=== PATIENT | female | born 1995 | race Caucasian/White ===

== ENCOUNTER 2017-01-16 15:38 | Emergency (ER) | payer SELFPAY ==
[2017-01-16] MEDS ORDERED: ONDANSETRON 4 MG TAB.RAPDIS PO ONE (16:31)
[2017-01-16] MEDS: NORMAL SALINE 1000 ML 1,000 ML IV PRN ×3 (16:47→17:44)
[2017-01-16 16:58] LABS: ABSOLUTE EOSINOPHILS # (AUTO) 0.1 10^3/uL (0.0-0.6); ABSOLUTE LYMPHOCYTES (AUTO) 1.6 10^3/uL (0.5-4.7); ABSOLUTE MONOCYTES (AUTO) 1.5 10^3/uL (0.1-1.4); BASOPHILS % (AUTO) 0.3 % (0-2); EOSINOPHILS % (AUTO) 0.6 % (0-6); HEMATOCRIT 44.9 % (36.0-47.0); HEMOGLOBIN 15.2 g/dL (12.0-15.5); HGB HCT DIFFERENCE 0.7; LYMPHOCYTES % (AUTO) 12.1 % (13-45); MEAN CORPUSCULAR HEMOGLOBIN 28.5 pg (27.0-33.4); MEAN CORPUSCULAR HGB CONC 33.9 g/dL (32.0-36.0); MEAN CORPUSCULAR VOLUME 84 fl (80-97); MONOCYTES % (AUTO) 11.3 % (3-13); RED BLOOD COUNT 5.34 10^6/uL (3.72-5.28); RED CELL DISTRIBUTION WIDTH 12.9 % (11.5-14.0); SEGMENTED NEUTROPHILS % (AUTO) 75.7 % (42-78); WHITE BLOOD COUNT 13.2 10^3/uL (4.0-10.5)
[2017-01-16 17:11] LABS: APPEARANCE,URINE CLOUDY; BILIRUBIN,URINE MODERATE (NEGATIVE); GLUCOSE, URINE NEGATIVE (NEGATIVE); KETONES,URINE 80 mg/dL (NEGATIVE); LEUKOCYTE ESTERASE,URINE SMALL (NEGATIVE); NITRITE,URINE NEGATIVE (NEGATIVE); PROTEIN,URINE 100 mg/dL (NEGATIVE); URINE SPECIFIC GRAVITY 1.024
[2017-01-16 17:17] LABS: ALANINE AMINOTRANSFERASE 163 U/L (9-52); ALBUMIN 4.8 g/dL (3.5-5.0); ALKALINE PHOSPHATASE 126 U/L (38-126); ASPARTATE AMINO TRANSFERASE 82 U/L (14-36); BILIRUBIN,DIRECT 1.1 mg/dL (0.0-0.4); BILIRUBIN,TOTAL 1.5 mg/dL (0.2-1.3); BLOOD UREA NITROGEN 15 mg/dL (7-20); CALCIUM 10.2 mg/dL (8.4-10.2); CREATININE RESULT 1.06 mg/dL (0.52-1.25); GLUCOSE 98 mg/dL (75-110); TOTAL PROTEIN 8.6 g/dL (6.3-8.2)
[2017-01-16] MEDS ORDERED: CEFTRIAXONE 1 GM/D5W RTU 50 ML IV ONE (17:19)
--- NOTE | 2017-01-16 17:53 | ER Document Report ---
ED GI/ - General Mode of Arrival: Ambulatory Information source: Patient TRAVEL OUTSIDE OF THE [place] IN LAST 30 DAYS: No - HPI Onset: Other - Refer to HPI notes Associated symptoms: Nausea, Vomiting <SOHEILA CURRY - Last Filed: 01/16/17 20:20> <KENDELL DIAMOND - Last Filed: 01/16/17 23:04> - General Chief Complaint: Flank Pain Stated Complaint: FLANK PAIN Time Seen by Provider: 01/16/17 16:30 Notes: Patient is a 21 year old female presenting to the emergency department for side pain, vomiting, nausea, difficulty sleeping, and some abdominal discomfort. Patient is unsure if she is but states her last menstrual period was somewhat abnormal. Patient states her pain has increased over the last few days. Patient also has a lack of appetite and has some vaginal discharge which is normal for her. Patient denies any vaginal bleeding. Patient thought that she had a virus but it is lasting longer than she thought. Patient has no known allergies. (SOHEILA CURRY) - Related Data Allergies/Adverse Reactions: No Known Allergies Allergy (Verified 01/16/17 19:27) Past Medical History - General Information source: Patient - Social History Smoking Status: Never Smoker Cigarette use (# per day): No Chew tobacco use (# tins/day): No Smoking Education Provided: No Frequency of alcohol use: None Drug Abuse: None Family History: None Patient has suicidal ideation: No Patient has homicidal ideation: No - Medical History Medical History: Negative Surgical Hx: Negative <SOHEILA CURRY - Last Filed: 01/16/17 20:20> Review of Systems - Review of Systems Constitutional: No symptoms reported EENT: No symptoms reported Cardiovascular: No symptoms reported Respiratory: No symptoms reported Gastrointestinal: See HPI, Abdominal pain, Nausea, Vomiting, Poor appetite Genitourinary: No symptoms reported Female Genitourinary: See HPI, Vaginal discharge Musculoskeletal: No symptoms reported Skin: No symptoms reported Hematologic/Lymphatic: No symptoms reported Neurological/Psychological: No symptoms reported -: Yes All other systems reviewed and negative <SOHEILA CURRY - Last Filed: 01/16/17 20:20> Physical Exam - Vital signs Interpretation: Tachycardic <SOHEILA CURRY - Last Filed: 01/16/17 20:20> <KENDELL DIAMOND - Last Filed: 01/16/17 23:04> - Vital signs Vitals: Temp Pulse Resp BP Pulse Ox 98.5 F 137 H 20 129/99 H 96 01/16/17 15:42 01/16/17 15:42 01/16/17 15:42 01/16/17 15:42 01/16/17 15:42 - Notes Notes: GENERAL: Alert, interacts well. Mild distress. HEAD: Normocephalic, atraumatic. EYES: Appear normal. Pupils equal, round, and reactive to light. ENT: Dry mucus membranes, tongue midline. NECK: Full range of motion. Supple. Trachea midline. LUNGS: Clear to auscultation bilaterally, no wheezes, rales, or rhonchi. No respiratory distress. HEART: Regular rate and rhythm. No murmurs, gallops, or rubs. ABDOMEN: Soft, non-tender. Non-distended. Normal bowel sounds. BACK: Left CVA tenderness to palpation. EXTREMITIES: Moves all 4 extremities spontaneously. Normal strength. No edema. NEUROLOGICAL: Alert and oriented x3. Normal speech. No focal neurological deficits. GSC 15. PSYCH: Normal affect, normal mood. SKIN: Warm, dry, normal turgor. No rashes or lesions noted. (SOHEILA CURRY) Course - Laboratory Result Diagrams: 01/16/17 16:45 01/16/17 16:45 <SOHEILA CURRY - Last Filed: 01/16/17 20:20> - Laboratory Result Diagrams: 01/16/17 16:45 01/16/17 16:45 <KENDELL DIAMOND - Last Filed: 01/16/17 23:04> - Re-evaluation Re-evalutation: 01/16/17 19:00 Patient is a 21-year-old female who comes in with flank pain, nausea and vomiting. Patient with UTI, probable pyelonephritis. Patient is also dehydrated. Feeling better after fluids and nausea medicine. Patient is which she was not aware of. Ultrasound ordered. 01/16/17 21:00 No acute findings on ultrasound. Patient is feeling a little nauseated after eating crackers. Will be given Reglan. Patient is feeling much better at this time. Will be given Tylenol for some mild pain. 01/16/17 23:01 Patient is taking p.o. without any difficulty. Comfortable going home. She is to follow-up with [facility]. She has been given a copy of her ultrasound and blood work. Of note, patient also appears to have hyperthyroidism which is not known to her. (KENDELL DIAMOND) - Vital Signs Vital signs: Temp Pulse Resp BP Pulse Ox 98.5 F 95 18 125/70 99 01/16/17 20:31 01/16/17 20:31 01/16/17 20:31 01/16/17 20:31 01/16/17 20:31 - Laboratory Laboratory results interpreted by me: 01/16/17 01/16/17 01/16/17 16:45 16:45 16:45 WBC 13.2 H RBC 5.34 H Lymphocytes % 12.1 L Absolute Neutrophils 10.0 H Absolute Monocytes 1.5 H Sodium 135.6 L Potassium 3.4 L Chloride 92 L Carbon Dioxide 21 L Anion Gap 23 H Total Bilirubin 1.5 H Direct Bilirubin 1.1 H AST 82 H ALT 163 H Total Protein 8.6 H TSH < 0.02 L Beta HCG, Quant 751257.00 H Urine Protein Urine Ketones Urine Blood Urine Bilirubin Urine Urobilinogen Ur Leukocyte Esterase 01/16/17 16:45 WBC RBC Lymphocytes % Absolute Neutrophils Absolute Monocytes Sodium Potassium Chloride Carbon Dioxide Anion Gap Total Bilirubin Direct Bilirubin AST ALT Total Protein TSH Beta HCG, Quant Urine Protein 100 H Urine Ketones 80 H Urine Blood SMALL H Urine Bilirubin MODERATE H Urine Urobilinogen 4.0 H Ur Leukocyte Esterase SMALL H Discharge <SOHEILA CURRY - Last Filed: 01/16/17 20:20> <KENDELL DIAMOND - Last Filed: 01/16/17 23:04> - Discharge Clinical Impression: Pyelonephritis Qualifiers: Weeks of gestation: 10 weeks Qualified Code(s): Z3A.10 - 10 weeks gestation of Condition: Stable Disposition: HOME, SELF-CARE Instructions: Pyelonephritis ([facility]), Rocephin ([facility]), Acetaminophen Additional Instructions: Please follow-up with your doctor this week. Please make sure you are taking antibiotics as prescribed. Return immediately if you have any worsening symptoms or further concerns. Prescriptions: Cephalexin Monohydrate [Keflex 500 mg Capsule] 500 mg PO QID #40 capsule Metoclopramide HCl [Reglan 10 mg Tablet] 1 tab PO TIDP PRN #25 tablet PRN Reason: Forms: Return to Work [facility]: [facility] [Provider Group] - 01/19/17 Scribe Attestation: 01/16/17 23:01 I personally performed the services described in the documentation, reviewed and edited the documentation which was dictated to the scribe in my presence, and it accurately records my words and actions. (KENDELL DIAMOND) Scribe Documentation - Scribe Written by Gaile:: Domo Mendoza, 01/16/2017 19:52 acting as scribe for :: Low <SOHEILA CURRY - Last Filed: 01/16/17 20:20>
[2017-01-16 18:05] LABS: CARBON DIOXIDE 21 mmol/L (22-30); CHLORIDE 92 mmol/L (98-107); POTASSIUM 3.4 mmol/L (3.6-5.0); SODIUM 135.6 mmol/L (137-145)
[2017-01-16] MEDS ORDERED: NORMAL SALINE 1000 ML 1,000 ML IV ONE (18:09)
[2017-01-16 18:24] LABS: ANION GAP 23 (5-19)
--- NOTE | 2017-01-16 20:59 | RADIOLOGY REPORT (SQ) ---
EXAM DESCRIPTION: U/S ABDOMEN LIMITED W/O DOP COMPLETED DATE/TIME: 01/16/2017 8:40 pm REASON FOR STUDY: left flank pain, COMPARISON: None. TECHNIQUE: Dynamic and static grayscale images acquired of the abdomen and recorded on PACS. Additio nal selected color Doppler and spectral images recorded. LIMITATIONS: None. FINDINGS: PANCREAS: No masses. Visualized pancreatic duct normal caliber. LIVER: No masses. Echotexture normal. LIVER VASCULATURE: Normal directional flow of the main portal vein and hepatic veins. GALLBLADDER: Moderate amount of gallbladder sludge. No shadowing stones. Normal wall thickness. No p ericholecystic fluid. ULTRASOUND-DETECTED FALCON'S SIGN: Negative. INTRAHEPATIC DUCTS AND COMMON DUCT: CBD and intrahepatic ducts normal caliber. No filling defects. INFERIOR VENA CAVA: Normal flow. AORTA: No aneurysm. RIGHT KIDNEY: Normal size. Normal echogenicity. No solid or suspicious masses. No hydronephrosis. No calcifications. PERITONEAL AND RIGHT PLEURAL SPACE: No ascites or effusions. OTHER: No other significant findings. IMPRESSION: Moderate amount of gallbladder sludge. No shadowing stones. No pericholecystic fluid. TECHNICAL DOCUMENTATION: JOB ID: [id number] [employer]- All Rights Reserved
--- NOTE | 2017-01-16 21:01 | RADIOLOGY REPORT (SQ) ---
EXAM DESCRIPTION: U/S OB TRANSVAGINAL W/O DOP COMPLETED DATE/TIME: 01/16/2017 8:40 pm REASON FOR STUDY: , evaluate for IUP COMPARISON: None. TECHNIQUE: Transvaginal static and realtime grayscale images acquired of the pelvis. Additional olga cted spectral and color Doppler images recorded. All images stored on PACs. bHC, 680 LIMITATIONS: None. FINDINGS: FETUS: Living intrauterine . CRL 4.0 cm. EGA: 10 weeks 6 days OSEAS: 08/08/2017 FHR: 160 beats per minute. SUBCHORIONIC BLEED: No SIZE OF BLEED: Not applicable. UTERUS: No masses. No anomalies. CERVICAL LENGTH: 3.2 cm Closed. RIGHT ADNEXA: Ovary not identified. No adnexal free fluid. No adnexal masses. LEFT ADNEXA: Normal ovary with normal vascular flow. No adnexal free fluid. No adnexal masses. FREE FLUID: None. OTHER: No other significant finding. IMPRESSION: LIVING INTRAUTERINE . EGA 10 weeks 6 days Trimester of : First - 0 to 13 weeks. TECHNICAL DOCUMENTATION: JOB ID: [id number] [employer]- All Rights Reserved
[2017-01-16] MEDS ORDERED: METOCLOPRAMIDE HCL INJ/PF 10 MG/2 ML SDV IV ONE (21:37)
[2017-01-16] MEDS ORDERED: ACETAMINOPHEN 325 MG TABLET PO ONE (22:50)
[2017-01-16 22:52] VITALS: BP 117/65
== END 2017-01-16 23:05 | disposition home or self-care (01) ==
LOC: ER 15:38
DX: O23.01 Infections of kidney in pregnancy, first trimester (principal); R10.9 Unspecified abdominal pain; O21.9 Vomiting of pregnancy, unspecified; Z3A.10 10 weeks gestation of pregnancy
CPT/HCPCS: 99284; 96375; 96365; 36415; 87040; 87086; 84702; 84443; 85025; 87077; 80053; 81001; 87186; 76817; 76705; S0119; J2765; J7030; J0696

== ENCOUNTER 2017-02-01 14:44 | Emergency (ER) | payer SELFPAY ==
[2017-02-01] MEDS ORDERED: DEXTROSE 5%-NORMAL SALINE 1,000 ML IV ONE ×2 (15:50→15:51)
[2017-02-01] MEDS ORDERED: METOCLOPRAMIDE HCL INJ/PF 10 MG/2 ML SDV IV ONE ×2 (15:51→17:57)
[2017-02-01] MEDS ORDERED: DIPHENHYDRAMINE HCL 50 MG/ML VIAL IV ONE (15:51)
--- NOTE | 2017-02-01 15:52 | ER Document Report ---
ED Medical Screen (RME) - General Chief Complaint: Nausea/Vomiting Stated Complaint: NAUSEA Time Seen by Provider: 02/01/17 15:50 Mode of Arrival: Ambulatory Information source: Patient Notes: -year-old female who is 13 weeks presents to the emergency room with nausea, vomiting not tolerating fluids TRAVEL OUTSIDE OF THE [place] IN LAST 30 DAYS: No - Related Data Allergies/Adverse Reactions: No Known Allergies Allergy (Verified 01/16/17 19:27) Past Medical History Renal/ Medical History: Denies: Hx Peritoneal Dialysis Physical Exam - Vital signs Vitals: Temp Pulse Resp BP Pulse Ox 97.4 F 115 H 18 128/85 H 96 02/01/17 14:48 02/01/17 14:48 02/01/17 14:48 02/01/17 14:48 02/01/17 14:48 Course - Vital Signs Vital signs: Temp Pulse Resp BP Pulse Ox 97.4 F 115 H 18 128/85 H 96 02/01/17 14:48 02/01/17 14:48 02/01/17 14:48 02/01/17 14:48 02/01/17 14:48
[2017-02-01 16:15] LABS: ABSOLUTE LYMPHOCYTES (AUTO) 1.2 10^3/uL (0.5-4.7); ABSOLUTE MONOCYTES (AUTO) 1.1 10^3/uL (0.1-1.4); ABSOLUTE NEUT (AUTO) 10.4 10^3/uL (1.7-8.2); BASOPHILS % (AUTO) 0.4 % (0-2); EOSINOPHILS % (AUTO) 0.3 % (0-6); HEMATOCRIT 40.8 % (36.0-47.0); HEMOGLOBIN 14.3 g/dL (12.0-15.5); HGB HCT DIFFERENCE 2.1; LYMPHOCYTES % (AUTO) 9.3 % (13-45); MEAN CORPUSCULAR HEMOGLOBIN 29.5 pg (27.0-33.4); MEAN CORPUSCULAR VOLUME 84 fl (80-97); MONOCYTES % (AUTO) 8.9 % (3-13); RED BLOOD COUNT 4.84 10^6/uL (3.72-5.28); RED CELL DISTRIBUTION WIDTH 13.3 % (11.5-14.0); SEGMENTED NEUTROPHILS % (AUTO) 81.1 % (42-78); WHITE BLOOD COUNT 12.8 10^3/uL (4.0-10.5)
[2017-02-01 16:23] LABS: APPEARANCE,URINE SLIGHTLY-CLOUDY; BILIRUBIN,URINE NEGATIVE (NEGATIVE); GLUCOSE, URINE NEGATIVE (NEGATIVE); KETONES,URINE 80 mg/dL (NEGATIVE); LEUKOCYTE ESTERASE,URINE TRACE (NEGATIVE); NITRITE,URINE NEGATIVE (NEGATIVE); PROTEIN,URINE 30 mg/dL (NEGATIVE); URINE SPECIFIC GRAVITY 1.018
[2017-02-01 16:33] LABS: ALANINE AMINOTRANSFERASE 61 U/L (9-52); ALBUMIN 4.9 g/dL (3.5-5.0); ALKALINE PHOSPHATASE 112 U/L (38-126); ANION GAP 19 (5-19); ASPARTATE AMINO TRANSFERASE 38 U/L (14-36); BILIRUBIN,DIRECT 0.7 mg/dL (0.0-0.4); BILIRUBIN,TOTAL 1.1 mg/dL (0.2-1.3); BLOOD UREA NITROGEN 8 mg/dL (7-20); CALCIUM 10.1 mg/dL (8.4-10.2); CARBON DIOXIDE 18 mmol/L (22-30); CHLORIDE 97 mmol/L (98-107); CREATININE RESULT 0.65 mg/dL (0.52-1.25); GLUCOSE 104 mg/dL (75-110); POTASSIUM 3.8 mmol/L (3.6-5.0); TOTAL PROTEIN 8.4 g/dL (6.3-8.2)
--- NOTE | 2017-02-01 16:54 | ER Document Report ---
ED GI/ - General Chief Complaint: Nausea/Vomiting Stated Complaint: NAUSEA Time Seen by Provider: 02/01/17 15:50 Mode of Arrival: Ambulatory Information source: Patient TRAVEL OUTSIDE OF THE [place] IN LAST 30 DAYS: No - HPI Patient complains to provider of: , Vomiting Onset: Other - SEVERAL DAYS Timing/Duration: Gradual, Intermittent Quality of pain: Achy, Dull, Other - SORENESS Severity at maximum: Moderate Severity in ED: Moderate Context: . denies: Recent trauma Location: Epigastric Vaginal bleeding (Compared to normal period): None Menstrual period history: - Related Data Allergies/Adverse Reactions: No Known Allergies Allergy (Verified 01/16/17 19:27) Past Medical History - General Information source: Patient - Social History Smoking Status: Never Smoker Cigarette use (# per day): No Chew tobacco use (# tins/day): No Smoking Education Provided: No Frequency of alcohol use: None Drug Abuse: None Lives with: Spouse/Significant other Family History: None Patient has suicidal ideation: No Patient has homicidal ideation: No - Past Medical History Cardiac Medical History: Reports: None Pulmonary Medical History: Reports: None EENT Medical History: Reports: None Neurological Medical History: Reports: None Endocrine Medical History: Reports: None Renal/ Medical History: Reports: None. Denies: Hx Peritoneal Dialysis Malignancy Medical History: Reports: None GI Medical History: Reports: None Musculoskeltal Medical History: Reports None Psychiatric Medical History: Reports: None Surgical Hx: Negative Review of Systems - Review of Systems Constitutional: Weakness EENT: No symptoms reported Cardiovascular: No symptoms reported Respiratory: No symptoms reported Gastrointestinal: See HPI Genitourinary: No symptoms reported Female Genitourinary: See HPI Musculoskeletal: No symptoms reported Neurological/Psychological: No symptoms reported Physical Exam - Vital signs Vitals: Temp Pulse Resp BP Pulse Ox 97.4 F 115 H 18 128/85 H 96 02/01/17 14:48 02/01/17 14:48 02/01/17 14:48 02/01/17 14:48 02/01/17 14:48 Interpretation: Tachycardic. No: Tachypneic, Febrile - General General appearance: Appears well, Alert In distress: None - HEENT Head: Normocephalic Eyes: Normal Conjunctiva: Normal Ears: Normal Nasal: Normal Mouth/Lips: Normal Mucous membranes: Dry - MODERATE Pharynx: Normal Neck: Normal - Respiratory Respiratory status: No respiratory distress - Cardiovascular Rhythm: Regular, Tachycardia - Abdominal Inspection: Gravid female - Extremities General upper extremity: Normal inspection General lower extremity: Normal inspection - Neurological Neuro grossly intact: Yes Cognition: Normal Orientation: AAOx4 - Psychological Associated symptoms: Normal affect, Normal mood - Skin Skin Temperature: Warm Skin Moisture: Dry Skin Color: Normal Skin Turgor: Elastic Course - Vital Signs Vital signs: Temp Pulse Resp BP Pulse Ox 97.4 F 115 H 18 128/85 H 96 02/01/17 14:48 02/01/17 14:48 02/01/17 14:48 02/01/17 14:48 02/01/17 14:48 - Laboratory Result Diagrams: 02/01/17 16:05 02/01/17 16:05 Laboratory results interpreted by me: 02/01/17 02/01/17 02/01/17 15:56 16:05 16:05 WBC 12.8 H Seg Neutrophils % 81.1 H Lymphocytes % 9.3 L Absolute Neutrophils 10.4 H Sodium 134.0 L Chloride 97 L Carbon Dioxide 18 L Direct Bilirubin 0.7 H AST 38 H ALT 61 H Total Protein 8.4 H Urine Protein 30 H Urine Ketones 80 H Urine Urobilinogen 4.0 H Ur Leukocyte Esterase TRACE H Discharge - Discharge Clinical Impression: Hyperemesis gravidarum, Dehydration Condition: Stable Disposition: HOME, SELF-CARE Instructions: Intravenous (IV) Fluids ([facility]), Dehydration ([facility]), Reglan ([facility]), Hyperemesis Gravidarum ([facility]) Additional Instructions: MEDS DIRECTED. FOLLOW UP WITH OB. CLINIC OF YOUR CHOICE, OR WITH [facility]. RETURN TO E.R. IF PROBLEMS. Prescriptions: Metoclopramide HCl 10 mg PO Q6HP PRN #30 tablet PRN Reason: For Nausea/Vomiting Referrals: ALFREDO AGEE MD [Primary Care Provider] - Follow up as needed [facility] [Outside] - Follow up as needed
[2017-02-01] MEDS ORDERED: NORMAL SALINE 1000 ML 1,000 ML IV ONE (17:57)
[2017-02-01 20:29] VITALS: BP 112/50
== END 2017-02-01 20:29 | disposition home or self-care (01) ==
LOC: ER 14:44
DX: O21.1 Hyperemesis gravidarum with metabolic disturbance (principal); Z3A.13 13 weeks gestation of pregnancy
CPT/HCPCS: 96376; 99284; 96361; 96375; 96365; 36415; 85025; 80053; 81001; J1200; J2765; J7030

== ENCOUNTER 2017-08-14 18:01 | Emergency (ER) | payer MEDICAID ==
[2017-08-14] MEDS ORDERED: DIPHENHYDRAMINE HCL 50 MG/ML VIAL IV ONE (19:34)
[2017-08-14] MEDS ORDERED: NORMAL SALINE 1000 ML 1,000 ML IV ONE (19:34)
--- NOTE | 2017-08-14 19:35 | ER Document Report ---
ED Medical Screen (RME) - General Chief Complaint: Nausea/Vomiting Stated Complaint: VOMITING Time Seen by Provider: 08/14/17 19:33 Mode of Arrival: Ambulatory Information source: Patient Notes: Patient states that she is about 8 weeks and has had nausea and vomiting for the past several weeks. Patient states vomiting worsened today. Patient states she is vomited numerous times and had blood in her emesis. Patient has not had an ultrasound to confirm the location of this . Patient does report some lower pelvic cramping. Patient denies any urinary symptoms, vaginal bleeding or discharge. I have greeted and performed a rapid initial assessment of this patient. A comprehensive ED assessment and evaluation of the patient, analysis of test results and completion of the medical decision making process will be conducted by additional ED providers. TRAVEL OUTSIDE OF THE [place] IN LAST 30 DAYS: No - Related Data Allergies/Adverse Reactions: Penicillins Allergy (Verified 08/14/17 18:06) Past Medical History Renal/ Medical History: Denies: Hx Peritoneal Dialysis Physical Exam - Vital signs Vitals: Temp Pulse Resp BP Pulse Ox 98.4 F 117 H 18 116/67 99 08/14/17 18:17 08/14/17 18:17 08/14/17 18:17 08/14/17 18:17 08/14/17 18:17 - Abdominal Tenderness: Tender - Left lower pelvic Course - Vital Signs Vital signs: Temp Pulse Resp BP Pulse Ox 98.4 F 117 H 18 116/67 99 08/14/17 18:17 08/14/17 18:17 08/14/17 18:17 08/14/17 18:17 08/14/17 18:17
--- NOTE | 2017-08-14 20:18 | RADIOLOGY REPORT (SQ) ---
EXAM DESCRIPTION: U/S OB TRANSVAGINAL W/O DOP COMPLETED DATE/TIME: 08/14/2017 8:10 pm REASON FOR STUDY: pelvic cramping COMPARISON: None. TECHNIQUE: Transvaginal static and realtime grayscale images acquired of the pelvis. Additional olga cted spectral and color Doppler images recorded. All images stored on PACs. bHCG: Not available. LIMITATIONS: None. FINDINGS: FETUS: Living intrauterine . EGA: 8 weeks 2 days OSEAS: 03/24/2018 FHR: 175 beats per minute. SUBCHORIONIC BLEED: No. SIZE OF BLEED: Not applicable. UTERUS: No masses. No anomalies. CERVICAL LENGTH: 3.2 cm. Closed. RIGHT ADNEXA: Ovary not identified. No adnexal free fluid. No adnexal masses. LEFT ADNEXA: Ovary not identified. No adnexal free fluid. No adnexal masses. FREE FLUID: None. OTHER: No other significant finding. IMPRESSION: LIVING INTRAUTERINE . EGA 8 WEEKS 2 DAYS. Trimester of : First - 0 to 13 weeks. TECHNICAL DOCUMENTATION: JOB ID: [id number] [employer]- All Rights Reserved
[2017-08-14 21:12] LABS: ABSOLUTE BASOPHILS # (AUTO) 0.1 10^3/uL (0.0-0.2); ABSOLUTE EOSINOPHILS # (AUTO) 0.2 10^3/uL (0.0-0.6); ABSOLUTE LYMPHOCYTES (AUTO) 1.3 10^3/uL (0.5-4.7); ABSOLUTE MONOCYTES (AUTO) 0.7 10^3/uL (0.1-1.4); ABSOLUTE NEUT (AUTO) 10.7 10^3/uL (1.7-8.2); BASOPHILS % (AUTO) 0.5 % (0-2); EOSINOPHILS % (AUTO) 1.4 % (0-6); HEMATOCRIT 41.7 % (36.0-47.0); HEMOGLOBIN 14.4 g/dL (12.0-15.5); LYMPHOCYTES % (AUTO) 10.1 % (13-45); MEAN CORPUSCULAR HEMOGLOBIN 28.8 pg (27.0-33.4); MEAN CORPUSCULAR HGB CONC 34.5 g/dL (32.0-36.0); MEAN CORPUSCULAR VOLUME 84 fl (80-97); MONOCYTES % (AUTO) 5.6 % (3-13); PLATELET COUNT 351 10^3/uL (150-450); RED BLOOD COUNT 4.99 10^6/uL (3.72-5.28); RED CELL DISTRIBUTION WIDTH 14.5 % (11.5-14.0); SEGMENTED NEUTROPHILS % (AUTO) 82.4 % (42-78); TOTAL CELLS COUNTED % (AUTO) 100 %
[2017-08-14] MEDS ORDERED: METOCLOPRAMIDE HCL INJ/PF 10 MG/2 ML SDV IV ONE (21:35)
[2017-08-14 21:38] LABS: ALANINE AMINOTRANSFERASE 35 U/L (9-52); ALBUMIN 5.1 g/dL (3.5-5.0); ALKALINE PHOSPHATASE 80 U/L (38-126); ANION GAP 16 (5-19); ASPARTATE AMINO TRANSFERASE 30 U/L (14-36); BILIRUBIN,DIRECT 0.2 mg/dL (0.0-0.4); BILIRUBIN,TOTAL 0.4 mg/dL (0.2-1.3); BLOOD UREA NITROGEN 7 mg/dL (7-20); CALCIUM 10.6 mg/dL (8.4-10.2); CARBON DIOXIDE 27 mmol/L (22-30); CHLORIDE 98 mmol/L (98-107); GLUCOSE 94 mg/dL (75-110); SODIUM 140.5 mmol/L (137-145); TOTAL PROTEIN 8.3 g/dL (6.3-8.2)
[2017-08-14 21:43] LABS: APPEARANCE,URINE CLOUDY; BILIRUBIN,URINE NEGATIVE (NEGATIVE); COLOR,URINE AMBER; GLUCOSE, URINE NEGATIVE (NEGATIVE); KETONES,URINE 80 mg/dL (NEGATIVE); LEUKOCYTE ESTERASE,URINE MODERATE (NEGATIVE); NITRITE,URINE NEGATIVE (NEGATIVE); PROTEIN,URINE 100 mg/dL (NEGATIVE); URINE SPECIFIC GRAVITY 1.033
[2017-08-14] MEDS ORDERED: ONDANSETRON ODT 4 MG TAB (6 TAB/ER DISP) PO PRN (22:14)
--- NOTE | 2017-08-14 22:14 | ER Document Report ---
ED General - General Chief Complaint: Nausea/Vomiting Stated Complaint: VOMITING Time Seen by Provider: 08/14/17 19:33 Mode of Arrival: Ambulatory Notes: Patient is a 22-year-old female at 8 weeks by LMP who presents with 4 weeks of vomiting. Patient notes that since the fourth week of her as she has had persistent nausea with associated vomiting. She states she had several episodes of vomiting today and had small streaks of blood in the vomitus which is what prompted her to come to the emergency department. Nothing seems to improve or worsen her symptoms. She denies a history of similar symptoms during her prior which did end with an elective . She denies any abdominal pain, vaginal bleeding or vaginal discharge. No fever or constitutional symptoms. She has not yet established care for this . TRAVEL OUTSIDE OF THE [place] IN LAST 30 DAYS: No - Related Data Allergies/Adverse Reactions: Penicillins Allergy (Verified 08/14/17 18:06) Past Medical History - General Information source: Patient - Social History Smoking Status: Never Smoker Chew tobacco use (# tins/day): No Frequency of alcohol use: None Drug Abuse: None Lives with: Spouse/Significant other Family History: Reviewed & Not Pertinent Patient has suicidal ideation: No Patient has homicidal ideation: No Renal/ Medical History: Denies: Hx Peritoneal Dialysis Review of Systems - Review of Systems Notes: Constitutional: Negative for fever. HENT: Negative for sore throat. Eyes: Negative for visual changes. Cardiovascular: Negative for chest pain. Respiratory: Negative for shortness of breath. Gastrointestinal: Positive for vomiting Genitourinary: Negative for dysuria. Musculoskeletal: Negative for back pain. Skin: Negative for rash. Neurological: Negative for headaches, weakness or numbness. 10 point ROS negative except as marked above and in HPI. Physical Exam - Vital signs Vitals: Temp Pulse Resp BP Pulse Ox 98.4 F 117 H 18 116/67 99 08/14/17 18:17 08/14/17 18:17 08/14/17 18:17 08/14/17 18:17 08/14/17 18:17 Interpretation: Tachycardic Notes: PHYSICAL EXAMINATION: GENERAL: Well-appearing, well-nourished and in no acute distress. HEAD: Atraumatic, normocephalic. EYES: Pupils equal round and reactive to light, extraocular movements intact, sclera anicteric, conjunctiva are normal. ENT: nares patent, oropharynx clear without exudates. Moderately dry mucous membranes. NECK: Normal range of motion, supple without lymphadenopathy LUNGS: Breath sounds clear to auscultation bilaterally and equal. No wheezes rales or rhonchi. HEART: Regular rate and rhythm without murmurs ABDOMEN: Soft, nontender, normoactive bowel sounds. No guarding, no rebound. No masses appreciated. EXTREMITIES: Normal range of motion, no pitting or edema. No cyanosis. NEUROLOGICAL: No focal neurological deficits. Moves all extremities spontaneously and on command. PSYCH: Normal mood, normal affect. SKIN: Warm, Dry, normal turgor, no rashes or lesions noted. Course - Re-evaluation Re-evalutation: 08/14/17 22:10 Patient presents with persistent vomiting during . Vitals at time of my assessment are without tachycardia or hypotension. Laboratories reveal a normal creatinine and no evidence of significant dehydration. Patient did complain of streaks of blood in her vomitus likely secondary to microtears in the esophagus due to frequent vomiting as opposed to an upper GI bleed. Her hemoglobin is within normal limits and she has no evidence on history or exam of a severe upper GI bleed. Patient was able to tolerate oral intake here in the emergency department. IV fluids were provided. Formal ultrasound shows a viable 8 week 2 day . No vaginal bleeding or discharge. Based on abdominal exam, vitals and history I do not suspect an acute appendicitis, cholestasis of , acute cholecystitis, pancreatitis, or bowel obstruction. Patient will be started on a combination of doxylamine and vitamin B6. At this time will discharge with return precautions and follow-up recommendations. Verbal discharge instructions given a the bedside and opportunity for questions given. Medication warnings reviewed. Patient is in agreement with this plan and has verbalized understanding of return precautions and the need for primary care follow-up in the next 24-72 hours. - Vital Signs Vital signs: Temp Pulse Resp BP Pulse Ox 98.2 F 78 20 113/57 L 100 08/14/17 22:39 08/14/17 22:39 08/14/17 22:39 08/14/17 22:39 08/14/17 22:39 - Laboratory Result Diagrams: 08/14/17 20:44 08/14/17 20:44 Laboratory results interpreted by me: 08/14/17 08/14/17 08/14/17 20:44 20:44 21:20 WBC 13.0 H RDW 14.5 H Seg Neutrophils % 82.4 H Lymphocytes % 10.1 L Absolute Neutrophils 10.7 H Calcium 10.6 H Total Protein 8.3 H Albumin 5.1 H Urine Protein 100 H Urine Ketones 80 H Urine Urobilinogen 4.0 H Ur Leukocyte Esterase MODERATE H Urine Ascorbic Acid 20 H - Diagnostic Test Radiology reviewed: Reports reviewed Discharge - Discharge Clinical Impression: Dehydration, , excessive vomiting, First trimester Condition: Good Disposition: HOME, SELF-CARE Additional Instructions: You have been seen for vomiting during . You should continue to drink plenty of water and consider taking a solution such as Pedialyte if your having difficulty eating food. Please return if you become unable to drink any fluids for more than 12 hours, urinate less than twice a day, pass out, or have any other symptoms that are concerning to you. For nausea and vomiting during I recomment: Start with 10-12.5 mg of pyridoxine (vitamin B6) three times a day for 2 days. If not fully effective, Increase to 12.5 mg of pyridoxine four times a day for 2 days. If not fully effective, Increase to 25 mg of pyridoxine three times a day for 2 days. If not fully effective, Continue 25 mg pyridoxine 3 times a day, and add 12.5 mg of doxylamine before bedtime each day for 2 days. If not fully effective, Continue 25 mg pyridoxine 3 times a day, and take 12.5 mg of doxylamine twice a day. If not fully effective, Continue 25 mg pyridoxine 3 times a day, and take 12.5 mg of doxylamine three times a day. If not fully effective, Continue 25 mg pyridoxine 3 times a day, and 12.5 mg of doxylamine 3 times a day , while adding Emetrol, one to two tablespoons (15-30 cc) taken once or twice a day as needed. (Emetrol is an [id number] mixture of sugar syrups and phosphoric acid [phosphorylated carbohydrate solution]) that acts by soothing the actual wall of the gastrointestinal tract). If not fully effective, Consult with your doctor.
[2017-08-14 22:55] VITALS: BP 113/57
== END 2017-08-14 22:41 | disposition home or self-care (01) ==
LOC: ER 18:01
DX: O21.8 Other vomiting complicating pregnancy (principal); E86.0 Dehydration; Z3A.08 8 weeks gestation of pregnancy; Z88.0 Allergy status to penicillin
CPT/HCPCS: 99284; 96361; 96374; 96375; 36415; 83690; 85025; 80053; 81001; 76817; J1200; J2765; J7030

== ENCOUNTER 2017-08-20 09:22 | Emergency (ER) | payer MEDICAID ==
--- NOTE | 2017-08-20 11:01 | ER Document Report ---
ED General - General Chief Complaint: Nausea/Vomiting Stated Complaint: VOMITING Time Seen by Provider: 08/20/17 11:00 Mode of Arrival: Wheelchair Information source: Patient Notes: 22 yr old female 9 weeks presents with complaitns of nausea vomiting of 1 month duration. Pt has tried zofran and reglan with minimal improvement. Pt denies any vaginal bleeidng or discharge, denies any fevers or chills TRAVEL OUTSIDE OF THE [place] IN LAST 30 DAYS: No - HPI Onset: Other Onset/Duration: Persistent Quality of pain: No pain Severity: Moderate Pain Level: Denies Associated symptoms: Nausea, Vomiting Exacerbated by: Denies Relieved by: Denies Similar symptoms previously: Yes Recently seen / treated by doctor: Yes - Related Data Allergies/Adverse Reactions: Penicillins Allergy (Verified 08/20/17 09:25) Past Medical History - Social History Smoking Status: Never Smoker Cigarette use (# per day): No Chew tobacco use (# tins/day): No Smoking Education Provided: No Family History: Reviewed & Not Pertinent Renal/ Medical History: Denies: Hx Peritoneal Dialysis Review of Systems - Review of Systems Notes: REVIEW OF SYSTEMS: CONSTITUTIONAL : Denies fever, chills, or sweats. Denies recent illness. EENT: Denies eye, ear, throat, or mouth pain or symptoms. Denies nasal or sinus congestion or discharge. Denies throat, tongue, or mouth swelling or difficulty swallowing. CARDIOVASCULAR: Denies chest pain. Denies palpitations or racing or irregular heart beat. Denies ankle edema. RESPIRATORY: Denies cough, cold, or chest congestion. Denies shortness of breath, difficulty breathing, or wheezing. GASTROINTESTINAL: admits to nausea vomiting GENITOURINARY: Denies difficulty urinating, painful urination, burning, frequency, blood in urine, or discharge. FEMALE GENITOURINARY: Denies vaginal bleeding, heavy or abnormal periods, irregular periods. Denies vaginal discharge or odor. MUSCULOSKELETAL: Denies back or neck pain or stiffness. Denies joint pain or swelling. SKIN: Denies rash, lesions or sores. HEMATOLOGIC : Denies easy bruising or bleeding. LYMPHATIC: Denies swollen, enlarged glands. NEUROLOGICAL: Denies confusion or altered mental status. Denies passing out or loss of consciousness. Denies dizziness or lightheadedness. Denies headache. Denies weakness or paralysis or loss of use of either side. Denies problems with gait or speech. Denies sensory loss, numbness, or tingling. Denies seizures. PSYCHIATRIC: Denies anxiety or stress. Denies depression, suicidal ideation, or homicidal ideation. ALL OTHER SYSTEMS REVIEWED AND NEGATIVE. PHYSICAL EXAMINATION: GENERAL: Well-appearing, well-nourished and in no acute distress. HEAD: Atraumatic, normocephalic. EYES: Pupils equal round and reactive to light, extraocular movements intact, conjunctiva are normal. ENT: Nares patent, oropharynx clear without exudates. Moist mucous membranes. NECK: Normal range of motion, supple without lymphadenopathy LUNGS: Breath sounds clear to auscultation bilaterally and equal. No wheezes rales or rhonchi. HEART: tachycardic from vomiting ABDOMEN: Soft, nontender, nondistended abdomen. No guarding, no rebound. No masses appreciated. Female : deferred Musculoskeletal: Normal range of motion, no pitting or edema. No cyanosis. NEUROLOGICAL: Cranial nerves grossly intact. Normal speech, normal gait. Normal sensory, motor exams PSYCH: Normal mood, normal affect. SKIN: Warm, Dry, normal turgor, no rashes or lesions noted. Dictation was performed using [employer] voice recognition software Physical Exam - Vital signs Vitals: Temp Pulse Resp BP Pulse Ox 98 F 130 H 16 113/78 98 08/20/17 09:46 08/20/17 09:46 08/20/17 09:46 08/20/17 09:46 08/20/17 09:46 Course - Re-evaluation Re-evalutation: 08/20/17 11:08 Patient overall looks well is spitting in a bag at this time, fluids ordered 08/20/17 12:18 Patient notes significant improvement in symptoms after IV fluids were given she states she is no longer nauseous, mild hyperkalemia as noted on blood work, Patient wishes to be discharged home After performing a Medical Screening Examination, I estimate there is LOW risk for ACUTE APPENDICITIS, BOWEL OBSTRUCTION, ACUTE CHOLECYSTITIS, PERFORATED DIVERTICULITIS, INCARCERATED HERNIA, PANCREATITIS, PELVIC INFLAMMATORY DISEASE, PERFORATED ULCER, ECTOPIC , or TUBO-OVARIAN ABSCESS, thus I consider the discharge disposition reasonable. Also, there is no evidence or peritonitis , sepsis, or toxicity. I have reevaluated this patient multiple times and no significant life threatening changes are noted. The patient and I have discussed the diagnosis and risks, and we agree with discharging home with close follow-up with the understanding that symptoms and presentations can change. We also discussed returning to the Emergency Department immediately if new or worsening symptoms occur. We have discussed the symptoms which are most concerning (e.g., bloody stool, fever, changing or worsening pain, vomiting) that necessitate immediate return. - Vital Signs Vital signs: Temp Pulse Resp BP Pulse Ox 98 F 112 H 18 113/78 99 08/20/17 09:46 08/20/17 11:03 08/20/17 11:03 08/20/17 09:46 08/20/17 11:03 - Laboratory Result Diagrams: 08/20/17 11:14 08/20/17 11:14 Laboratory results interpreted by me: 08/20/17 08/20/17 11:14 11:14 WBC 11.3 H RBC 5.57 H Hgb 15.9 H RDW 14.7 H Seg Neutrophils % 78.5 H Lymphocytes % 12.3 L Absolute Neutrophils 8.9 H Sodium 136.9 L Potassium 3.3 L Chloride 93 L Carbon Dioxide 31 H Calcium 10.7 H Direct Bilirubin 0.5 H ALT 59 H Total Protein 8.3 H Discharge - Discharge Clinical Impression: Hyperemesis gravidarum, Hypokalemia Condition: Stable Disposition: HOME, SELF-CARE Instructions: Vomiting ([facility]) Additional Instructions: Follow up with your physician tomorrow for further care or return to the ED IMMEDIATELY if symptoms worsen or new concerns occur. If you cannot afford to follow up with your primary care physician a list of low cost clinics have been provided at the end of your discharge papers as well. Prescriptions: Promethazine HCl 25 mg PO Q6 #20 tablet Promethazine HCl [Promethegan] 50 mg RC Q6 #20 supp.rect
[2017-08-20] MEDS ORDERED: PROMETHAZINE HCL INJ 25 MG/1 ML VIAL IM ONE (11:06)
[2017-08-20] MEDS: NORMAL SALINE 1000 ML 1,000 ML IV PRN ×2 (11:18→11:51)
[2017-08-20 11:22] LABS: ABSOLUTE BASOPHILS # (AUTO) 0.1 10^3/uL (0.0-0.2); ABSOLUTE LYMPHOCYTES (AUTO) 1.4 10^3/uL (0.5-4.7); ABSOLUTE NEUT (AUTO) 8.9 10^3/uL (1.7-8.2); BASOPHILS % (AUTO) 0.4 % (0-2); EOSINOPHILS % (AUTO) 0.4 % (0-6); HEMATOCRIT 45.8 % (36.0-47.0); HEMOGLOBIN 15.9 g/dL (12.0-15.5); LYMPHOCYTES % (AUTO) 12.3 % (13-45); MEAN CORPUSCULAR HEMOGLOBIN 28.6 pg (27.0-33.4); MEAN CORPUSCULAR HGB CONC 34.7 g/dL (32.0-36.0); MEAN CORPUSCULAR VOLUME 82 fl (80-97); MONOCYTES % (AUTO) 8.4 % (3-13); PLATELET COUNT 381 10^3/uL (150-450); RED BLOOD COUNT 5.57 10^6/uL (3.72-5.28); RED CELL DISTRIBUTION WIDTH 14.7 % (11.5-14.0); SEGMENTED NEUTROPHILS % (AUTO) 78.5 % (42-78); TOTAL CELLS COUNTED % (AUTO) 100 %; WHITE BLOOD COUNT 11.3 10^3/uL (4.0-10.5)
[2017-08-20 11:46] LABS: ALANINE AMINOTRANSFERASE 59 U/L (9-52); ALBUMIN 4.9 g/dL (3.5-5.0); ALKALINE PHOSPHATASE 82 U/L (38-126); ANION GAP 13 (5-19); ASPARTATE AMINO TRANSFERASE 34 U/L (14-36); BILIRUBIN,DIRECT 0.5 mg/dL (0.0-0.4); BILIRUBIN,TOTAL 0.7 mg/dL (0.2-1.3); BLOOD UREA NITROGEN 7 mg/dL (7-20); CALCIUM 10.7 mg/dL (8.4-10.2); CARBON DIOXIDE 31 mmol/L (22-30); CHLORIDE 93 mmol/L (98-107); GLUCOSE 106 mg/dL (75-110); POTASSIUM 3.3 mmol/L (3.6-5.0); SODIUM 136.9 mmol/L (137-145); TOTAL PROTEIN 8.3 g/dL (6.3-8.2)
[2017-08-20] MEDS ORDERED: POTASSIUM CHLORIDE 20 MEQ/15 ML UDCUP PO ONE (12:18)
[2017-08-20 13:16] VITALS: BP 120/73
[2017-08-20 13:16] LABS: APPEARANCE,URINE CLOUDY; BILIRUBIN,URINE NEGATIVE (NEGATIVE); GLUCOSE, URINE 50 mg/dL (NEGATIVE); KETONES,URINE 80 mg/dL (NEGATIVE); LEUKOCYTE ESTERASE,URINE SMALL (NEGATIVE); NITRITE,URINE NEGATIVE (NEGATIVE); PROTEIN,URINE 100 mg/dL (NEGATIVE); URINE SPECIFIC GRAVITY 1.031
[2017-08-20 13:17] LABS: COLOR,URINE YELLOW
== END 2017-08-20 13:14 | disposition home or self-care (01) ==
LOC: ER 09:22
DX: O21.1 Hyperemesis gravidarum with metabolic disturbance (principal); Z3A.09 9 weeks gestation of pregnancy; Z88.0 Allergy status to penicillin
CPT/HCPCS: 99284; 96372; 96360; 96361; 36415; 85025; 80053; 81001; J3490; J2550; J7030

== ENCOUNTER 2017-09-08 20:15 | Emergency (ER) | payer MEDICAID ==
[2017-09-08 20:24] VITALS: BP 134/65
== END 2017-09-08 22:52 | disposition left against medical advice (07) ==
LOC: ER 20:15
DX: Z53.21 Procedure and treatment not carried out due to patient leaving prior to being seen by health care provider (principal)

== ENCOUNTER 2017-09-10 00:32 | Observation (INO) | payer MEDICAID ==
--- NOTE | 2017-09-10 01:07 | ER Document Report ---
ED GI/ - General Chief Complaint: Vag Bleeding, +preg <12wks Stated Complaint: VAGINAL BLEEDING Time Seen by Provider: 09/10/17 00:58 Notes: Patient is a 22-year-old female that comes emergency department for chief complaint of vaginal bleeding in with pelvic cramping, she is 12 weeks by first trimester ultrasound, , she states that she started spotting yesterday but bleeding much heavier tonight with passage of clots. She denies dizziness or passing out. She denies fever or chills. She is on vitamins, denies any other medications. Past medical history of elective . TRAVEL OUTSIDE OF THE [place] IN LAST 30 DAYS: No - Related Data Allergies/Adverse Reactions: Penicillins Allergy (Verified 08/20/17 09:25) Past Medical History - General Information source: Patient - Social History Smoking Status: Never Smoker Drug Abuse: None Lives with: Spouse/Significant other Family History: Reviewed & Not Pertinent - Medical History Medical History: Negative Renal/ Medical History: Denies: Hx Peritoneal Dialysis Past Surgical History: Reports: Hx Gynecologic Surgery - Elective Review of Systems - Review of Systems Constitutional: No symptoms reported EENT: No symptoms reported Cardiovascular: No symptoms reported Respiratory: No symptoms reported Gastrointestinal: See HPI Genitourinary: See HPI Female Genitourinary: See HPI Musculoskeletal: No symptoms reported Skin: No symptoms reported Hematologic/Lymphatic: No symptoms reported Neurological/Psychological: No symptoms reported Physical Exam - Vital signs Vitals: Temp Pulse Resp BP Pulse Ox 97.8 F 84 18 125/64 100 09/10/17 00:42 09/10/17 00:42 09/10/17 00:42 09/10/17 00:42 09/10/17 00:42 - General General appearance: Appears well In distress: None - HEENT Head: Normocephalic, Atraumatic Eyes: Normal Conjunctiva: Normal Extraocular movements intact: Yes Eyelashes: Normal Pupils: PERRL Mouth/Lips: Normal Mucous membranes: Normal Pharynx: Normal Neck: Normal - Respiratory Respiratory status: No respiratory distress Breath sounds: Normal. No: Decreased air movement, Wheezing - Cardiovascular Rhythm: Regular. No: Tachycardia Heart sounds: Normal auscultation, S1 appreciated, S2 appreciated - Abdominal Inspection: Normal Tenderness: Tender - Lower abdominal/pelvic tenderness bilaterally, nonspecific , upper abdomen benign - Genitourinary External exam: Normal Vaginal bleeding: Heavy - Back Back: Normal, Nontender. No: Tender - Extremities General upper extremity: Normal inspection, Nontender, Normal strength, Normal temperature General lower extremity: Normal inspection, Nontender, Normal strength, Normal temperature - Neurological Neuro grossly intact: Yes Cognition: Normal Orientation: AAOx4 [place] Coma Scale Eye Opening: Spontaneous Andriy Coma Scale Verbal: Oriented [place] Coma Scale Motor: Obeys Commands Andriy Coma Scale Total: 15 Speech: Normal Motor strength normal: LUE, RUE, LLE, RLE Sensory: Normal - Skin Skin Temperature: Warm Skin Moisture: Dry Skin Color: Normal Course - Re-evaluation Re-evalutation: 09/10/17 01:45 I was called to the bedside because patient had had a syncopal episode. Patient had been assisted to the bathroom, she was denying dizziness, she was actually not bleeding at the time, however in the bathroom she had a dowd of blood that filled her pad and undergarments as well as dripping onto the floor, patient became pale and then had a syncopal episode although staff was with her and they caught her and eased her to the ground without injury. I helped move patient back onto the bed, she was placed in Trendelenburg, 1 L of normal saline begun, patient regained consciousness. Patient placed on monitoring, blood pressure is 107 systolic. Ultrasound will be performed at bedside. Giving patient additional fluids, IV pain medicine. Ultrasound consistent with miscarriage, shows no IUP, so is either clot or ongoing miscarriage in the cervix. On pelvic examination patient has large amount of bleeding and clots, large amount of clots were removed, small amount of tissue, however patient continues to have more clots and more bleeding after several minutes and this was discontinued. Orthostatic vital signs were performed, plan was to ambulate patient for potential completion miscarriage at home with [employer] follow-up, however when patient stands her heart rate elevates to 130 and her blood pressure drops. 09/10/[address] Borden, [employer] on-call, patient will be admitted for observation. Patient and significant other state agreement and satisfaction with this plan. - Vital Signs Vital signs: Temp Pulse Resp BP Pulse Ox 97.8 F 89 19 102/66 92 09/10/17 00:42 09/10/17 05:28 09/10/17 05:04 09/10/17 05:28 09/10/17 05:04 - Laboratory Result Diagrams: 09/10/17 01:35 09/10/17 01:35 Laboratory results interpreted by me: 09/10/17 09/10/17 09/10/17 01:35 01:35 01:35 WBC 10.8 H Hct 34.7 L RDW 14.5 H Plt Count 454 H BUN 5 L Total Bilirubin < 0.1 L Beta HCG, Quant 2232.10 H Discharge - Discharge Clinical Impression: Miscarriage ongoing, Vaginal bleeding Episode of syncope Qualifiers: Syncope type: unspecified Qualified Code(s): R55 - Syncope and collapse Condition: Stable Disposition: ADMITTED OBSERVATION Admitting Provider: [facility] Admitted: Labor and Delivery
[2017-09-10 02:07] LABS: ABSOLUTE BASOPHILS # (AUTO) 0.1 10^3/uL (0.0-0.2); ABSOLUTE EOSINOPHILS # (AUTO) 0.6 10^3/uL (0.0-0.6); ABSOLUTE LYMPHOCYTES (AUTO) 3.2 10^3/uL (0.5-4.7); ABSOLUTE MONOCYTES (AUTO) 0.7 10^3/uL (0.1-1.4); ABSOLUTE NEUT (AUTO) 6.2 10^3/uL (1.7-8.2); BASOPHILS % (AUTO) 0.7 % (0-2); EOSINOPHILS % (AUTO) 5.6 % (0-6); HEMATOCRIT 34.7 % (36.0-47.0); LYMPHOCYTES % (AUTO) 29.2 % (13-45); MEAN CORPUSCULAR HEMOGLOBIN 29.2 pg (27.0-33.4); MEAN CORPUSCULAR HGB CONC 34.5 g/dL (32.0-36.0); MEAN CORPUSCULAR VOLUME 85 fl (80-97); MONOCYTES % (AUTO) 6.9 % (3-13); PLATELET COUNT 454 10^3/uL (150-450); RED CELL DISTRIBUTION WIDTH 14.5 % (11.5-14.0); SEGMENTED NEUTROPHILS % (AUTO) 57.6 % (42-78); TOTAL CELLS COUNTED % (AUTO) 100 %; WHITE BLOOD COUNT 10.8 10^3/uL (4.0-10.5)
[2017-09-10 02:13] LABS: ALANINE AMINOTRANSFERASE 25 U/L (9-52); ALBUMIN 3.7 g/dL (3.5-5.0); ALKALINE PHOSPHATASE 62 U/L (38-126); ANION GAP 9 (5-19); ASPARTATE AMINO TRANSFERASE 19 U/L (14-36); BLOOD UREA NITROGEN 5 mg/dL (7-20); CALCIUM 9.2 mg/dL (8.4-10.2); CARBON DIOXIDE 25 mmol/L (22-30); CHLORIDE 106 mmol/L (98-107); GLUCOSE 91 mg/dL (75-110); POTASSIUM 4.6 mmol/L (3.6-5.0); SODIUM 139.6 mmol/L (137-145); TOTAL PROTEIN 6.3 g/dL (6.3-8.2)
[2017-09-10 02:16] LABS: BILIRUBIN,TOTAL < 0.1 mg/dL (0.2-1.3)
--- NOTE | 2017-09-10 03:30 | RADIOLOGY REPORT (SQ) ---
EXAM DESCRIPTION: U/S OB TRANSVAG W/DOPPLER CLINICAL HISTORY: 22 years, Female, heavy vaginal bleeding, pelvic cramping COMPARISON: 08-14-17 TECHNIQUE: Transvaginal LIMITATIONS: None. FINDINGS: No intrauterine identified. There is interval absence of a previously demonstrated intrauterine on exam dated August 14, 2017. There is a 12.7 cm uterus. Complex avascular collection within the cervical canal measures 3.3 x 1.6 x 2.1 cm and may indicate ongoing gestational loss/clot. Ovarian fossae appear unremarkable. Ovaries are not discerned. No significant free fluid. IMPRESSION: No intrauterine identified. Possible ongoing gestational loss/clot at the level of the cervical canal. Recommend 48-72 hour serial laboratory/sonographic surveillance, as clinically warranted.
[2017-09-10] MEDS ORDERED: FENTANYL CITRATE INJ/PF 100 MCG/2 ML AMPUL IV ONE (03:49)
[2017-09-10] MEDS ORDERED: KETOROLAC TROMETHAMINE INJ/PF 30 MG/1 ML SDV IV ONE (03:49)
[2017-09-10] MEDS ORDERED: NORMAL SALINE 1000 ML 1,000 ML IV ONE ×2 (05:08)
[2017-09-10 14:24] LABS: ABSOLUTE BASOPHILS # (AUTO) 0.1 10^3/uL (0.0-0.2); ABSOLUTE EOSINOPHILS # (AUTO) 0.5 10^3/uL (0.0-0.6); ABSOLUTE LYMPHOCYTES (AUTO) 2.6 10^3/uL (0.5-4.7); ABSOLUTE MONOCYTES (AUTO) 0.7 10^3/uL (0.1-1.4); ABSOLUTE NEUT (AUTO) 6.1 10^3/uL (1.7-8.2); BASOPHILS % (AUTO) 0.7 % (0-2); EOSINOPHILS % (AUTO) 5.1 % (0-6); HEMATOCRIT 27.7 % (36.0-47.0); LYMPHOCYTES % (AUTO) 26.4 % (13-45); MEAN CORPUSCULAR HEMOGLOBIN 29.4 pg (27.0-33.4); MEAN CORPUSCULAR HGB CONC 34.4 g/dL (32.0-36.0); MEAN CORPUSCULAR VOLUME 85 fl (80-97); PLATELET COUNT 372 10^3/uL (150-450); RED BLOOD COUNT 3.25 10^6/uL (3.72-5.28); RED CELL DISTRIBUTION WIDTH 14.4 % (11.5-14.0); SEGMENTED NEUTROPHILS % (AUTO) 60.8 % (42-78); TOTAL CELLS COUNTED % (AUTO) 100 %
[2017-09-10 14:25] LABS: HEMOGLOBIN 9.5 g/dL (12.0-15.5)
--- NOTE | 2017-09-10 15:23 | PDOC H&P ---
History of Present Illness Admission Date/PCP: 09/10/17 05:23 22 yo admitted post what appears to be a complete miscarriage. Patient complains of: Miscarriage History of Present Illness: ASHA CASH is a 22 year old female She has passed a miscarriage and is no longer bleeding. Past Medical History LMP: 06/17/2017 Gynecological Infection: No Social History Lives with: Spouse/Significant other Smoking Status: Never Smoker Drugs: None - Advance Directive Resuscitation Status: Full Code Family History Family History: Reviewed & Not Pertinent Parental Family History Reviewed: Yes Children Family History Reviewed: Yes Sibling(s) Family History Reviewed.: Yes Medication/Allergy Home Medications: Doxylamine Succinate/Vit B6 [Diclegis Dr 10-10 mg Tablet] 1 each PO DAILY Allergies/Adverse Reactions: Penicillins Allergy (Verified 08/20/17 09:25) Physical Exam - Physical Exam Vital Signs: Temp Pulse Resp BP Pulse Ox 97.9 F 89 16 119/58 L 100 09/10/17 11:10 09/10/17 05:28 09/10/17 14:00 09/10/17 13:23 09/10/17 14:00 General appearance: PRESENT: no acute distress, well-developed, well-nourished Head exam: PRESENT: atraumatic, normocephalic Eye exam: PRESENT: conjunctiva pink, EOMI, PERRLA. ABSENT: scleral icterus Ear exam: PRESENT: normal external ear exam Neck exam: PRESENT: full ROM. ABSENT: carotid bruit, JVD, lymphadenopathy, thyromegaly Cardiovascular exam: PRESENT: RRR. ABSENT: diastolic murmur, rubs, systolic murmur Pulses: PRESENT: normal dorsalis pedis pul, +2 pedal pulses bilateral GI/Abdominal exam: PRESENT: normal bowel sounds, soft. ABSENT: distended, guarding, mass, organolmegaly, rebound, tenderness Extremities exam: PRESENT: full ROM. ABSENT: calf tenderness, clubbing, pedal edema Psychiatric exam: PRESENT: appropriate affect, normal mood. ABSENT: homicidal ideation, suicidal ideation Skin exam: PRESENT: dry, intact, warm. ABSENT: cyanosis, rash Additional comments: Pelvic- bleeding has stopped Result Laboratory Results: 09/10/17 14:08 09/10/17 14:08 WBC 10.0 RBC 3.25 L Hgb 9.5 L D Hct 27.7 L MCV 85 MCH 29.4 MCHC 34.4 RDW 14.4 H Plt Count 372 Seg Neutrophils % 60.8 Lymphocytes % 26.4 Monocytes % 7.0 Eosinophils % 5.1 Basophils % 0.7 Absolute Neutrophils 6.1 Absolute Lymphocytes 2.6 Absolute Monocytes 0.7 Absolute Eosinophils 0.5 Absolute Basophils 0.1 Impressions: Transvaginal US 09/10/17 01:05 IMPRESSION: No intrauterine identified. Possible ongoing gestational loss/clot at the level of the cervical canal. Recommend 48-72 hour serial laboratory/sonographic surveillance, as clinically warranted. Assessment & Plan - Diagnosis (1) Episode of syncope Qualifiers: Syncope type: unspecified Qualified Code(s): R55 - Syncope and collapse Is this a current diagnosis for this admission?: Yes (2) Vaginal bleeding Is this a current diagnosis for this admission?: Yes Plan: She has completed a miscarriage. Once she is stable we will have her go home. - Time Time Spent: 30 to 50 Minutes Anticipated discharge: Home Within: within 24 hours
--- NOTE | 2017-09-10 17:28 | PDOC DISCHARGE SUMMARY ---
General - Admit/Disc Date/PCP Admission Date/Primary Care Provider: 09/10/17 05:23 Discharge Date: 09/10/17 - Discharge Diagnosis (1) Episode of syncope Is this a current diagnosis for this admission?: Yes (2) Vaginal bleeding Is this a current diagnosis for this admission?: Yes - Additional Information Resuscitation Status: Full Code Home Medications: Doxylamine Succinate/Vit B6 [Diclegis Dr 10-10 mg Tablet] 1 each PO DAILY History of Present Illness Patient complains of: She has no complaints and feels well. She would like to go home. History of Present Illness: The patient presented to the ER and had a complete miscarriage. She had some syncope from blood loss but now is doing well. Hospital Course Hospital Course: She has completed a miscarriage and has anemia. Otherwise she is doing well. Physical Exam - Physical Exam Vital Signs: Temp Pulse Resp BP Pulse Ox 98.4 F 98 22 H 109/87 H 100 09/10/17 15:15 09/10/17 15:15 09/10/17 15:15 09/10/17 15:15 09/10/17 15:15 General appearance: PRESENT: no acute distress, well-developed, well-nourished Head exam: PRESENT: atraumatic, normocephalic Result Laboratory Results: 09/10/17 14:08 09/10/17 14:08 WBC 10.0 RBC 3.25 L Hgb 9.5 L D Hct 27.7 L MCV 85 MCH 29.4 MCHC 34.4 RDW 14.4 H Plt Count 372 Seg Neutrophils % 60.8 Lymphocytes % 26.4 Monocytes % 7.0 Eosinophils % 5.1 Basophils % 0.7 Absolute Neutrophils 6.1 Absolute Lymphocytes 2.6 Absolute Monocytes 0.7 Absolute Eosinophils 0.5 Absolute Basophils 0.1 Impressions: Transvaginal US 09/10/17 01:05 IMPRESSION: No intrauterine identified. Possible ongoing gestational loss/clot at the level of the cervical canal. Recommend 48-72 hour serial laboratory/sonographic surveillance, as clinically warranted. Home to rest and begin some otc iron. Plan Discharge Plan: Home on OTC iron and followup in the office next week. Time Spent: Greater than 30 Minutes
[2017-09-10 17:42] VITALS: BP 111/55
== END 2017-09-10 18:20 | disposition home or self-care (01) ==
LOC: ER 00:32 → EH 05:23 → 2S 14:30
PROVIDERS: ADMIT Obstetrics & Gynecology Gynecology; ATTEND Obstetrics & Gynecology Gynecology
DX: O03.6 Delayed or excessive hemorrhage following complete or unspecified spontaneous abortion (principal); O03.89 Complete or unspecified spontaneous abortion with other complications; D64.9 Anemia, unspecified; R55 Syncope and collapse
CPT/HCPCS: 99285; 96361; 96374; 96375; 86900; 86901; 36415; 84702; 85025; 80053; 88305 ×2; 76817; 93976; J3010; J1885; J7030; G0378